=== PATIENT | female | born 1940 | race African-American/Black ===

== ENCOUNTER → 2016-09-08 | Outpatient (CLI) | payer MEDICARE, OTHER ==
[2016-09-08 09:44] LABS: ALANINE AMINOTRANSFERASE 37 U/L (9-52); ALBUMIN 3.4 g/dL (3.5-5.0); ALKALINE PHOSPHATASE 53 U/L (38-126); ANION GAP 8 (5-19); ASPARTATE AMINO TRANSFERASE 36 U/L (14-36); BILIRUBIN,TOTAL 0.6 mg/dL (0.2-1.3); BLOOD UREA NITROGEN 20 mg/dL (7-20); CALCIUM 10.5 mg/dL (8.4-10.2); CARBON DIOXIDE 29 mmol/L (22-30); CHLORIDE 108 mmol/L (98-107); CHOLESTEROL 175.77 mg/dL (0-200); CREATININE RESULT 0.84 mg/dL (0.52-1.25); Direct HDL 80 mg/dL (>40); GLUCOSE 81 mg/dL (75-110); POTASSIUM 4.7 mmol/L (3.6-5.0); SODIUM 145.2 mmol/L (137-145); TOTAL PROTEIN 5.8 g/dL (6.3-8.2); TRIGLYCERIDES 56 mg/dL (<150)
[2016-09-08 09:55] LABS: DIRECT LDL 66 mg/dL (<100)
== END ==
LOC: OD 08:27
PROVIDERS: ATTEND Family Medicine
DX: E10.21 Type 1 diabetes mellitus with diabetic nephropathy (principal); Z79.899 Other long term (current) drug therapy
CPT/HCPCS: 36415; 80048; 80061; 80076; 83036

== ENCOUNTER → 2017-03-22 | Outpatient (CLI) | payer MEDICARE, OTHER ==
[2017-03-22 09:56] LABS: ABSOLUTE EOSINOPHILS # (AUTO) 0.1 10^3/uL (0.0-0.6); ABSOLUTE LYMPHOCYTES (AUTO) 1.4 10^3/uL (0.5-4.7); ABSOLUTE MONOCYTES (AUTO) 0.4 10^3/uL (0.1-1.4); ABSOLUTE NEUT (AUTO) 2.6 10^3/uL (1.7-8.2); BASOPHILS % (AUTO) 0.6 % (0-2); HEMATOCRIT 35.1 % (36.0-47.0); HEMOGLOBIN 11.2 g/dL (12.0-15.5); HGB HCT DIFFERENCE -1.5; LYMPHOCYTES % (AUTO) 31.7 % (13-45); MEAN CORPUSCULAR HEMOGLOBIN 28.9 pg (27.0-33.4); MEAN CORPUSCULAR HGB CONC 31.9 g/dL (32.0-36.0); MEAN CORPUSCULAR VOLUME 90 fl (80-97); MONOCYTES % (AUTO) 8.2 % (3-13); RED BLOOD COUNT 3.88 10^6/uL (3.72-5.28); RED CELL DISTRIBUTION WIDTH 14.2 % (11.5-14.0); SEGMENTED NEUTROPHILS % (AUTO) 57.5 % (42-78); WHITE BLOOD COUNT 4.5 10^3/uL (4.0-10.5)
[2017-03-22 10:26] LABS: ALANINE AMINOTRANSFERASE 26 U/L (9-52); ALBUMIN 3.6 g/dL (3.5-5.0); ALKALINE PHOSPHATASE 56 U/L (38-126); ANION GAP 8 (5-19); ASPARTATE AMINO TRANSFERASE 35 U/L (14-36); BILIRUBIN,DIRECT 0.3 mg/dL (0.0-0.4); BILIRUBIN,TOTAL 0.5 mg/dL (0.2-1.3); BLOOD UREA NITROGEN 15 mg/dL (7-20); CALCIUM 10.3 mg/dL (8.4-10.2); CARBON DIOXIDE 28 mmol/L (22-30); CHLORIDE 108 mmol/L (98-107); CHOLESTEROL 249.04 mg/dL (0-200); CREATININE RESULT 0.77 mg/dL (0.52-1.25); Direct HDL 82 mg/dL (>40); GLUCOSE 129 mg/dL (75-110); POTASSIUM 4.2 mmol/L (3.6-5.0); SODIUM 143.5 mmol/L (137-145); TOTAL PROTEIN 6.3 g/dL (6.3-8.2); TRIGLYCERIDES 78 mg/dL (<150)
[2017-03-22 10:37] LABS: DIRECT LDL 109 mg/dL (<100)
== END ==
LOC: OD 08:54
PROVIDERS: ATTEND Family Medicine
DX: Z79.899 Other long term (current) drug therapy (principal); E11.3392 Type 2 diabetes mellitus with moderate nonproliferative diabetic retinopathy without macular edema, left eye; I10 Essential (primary) hypertension
CPT/HCPCS: 36415; 80053; 80061; 83036; 85025

== ENCOUNTER → 2017-04-19 | Outpatient (CLI) | payer MEDICARE, OTHER ==
[2017-04-19 10:34] LABS: ALANINE AMINOTRANSFERASE 20 U/L (9-52); ALBUMIN 3.4 g/dL (3.5-5.0); ALKALINE PHOSPHATASE 54 U/L (38-126); ANION GAP 8 (5-19); ASPARTATE AMINO TRANSFERASE 29 U/L (14-36); BILIRUBIN,DIRECT 0.3 mg/dL (0.0-0.4); BILIRUBIN,TOTAL 0.4 mg/dL (0.2-1.3); BLOOD UREA NITROGEN 25 mg/dL (7-20); CALCIUM 10.1 mg/dL (8.4-10.2); CARBON DIOXIDE 30 mmol/L (22-30); CHLORIDE 111 mmol/L (98-107); CREATININE RESULT 1.01 mg/dL (0.52-1.25); GLUCOSE 57 mg/dL (75-110); POTASSIUM 4.5 mmol/L (3.6-5.0); SODIUM 148.7 mmol/L (137-145); TOTAL PROTEIN 6.1 g/dL (6.3-8.2)
== END ==
LOC: OD 08:51
PROVIDERS: ATTEND Internal Medicine Nephrology
DX: I10 Essential (primary) hypertension (principal); Z94.0 Kidney transplant status
CPT/HCPCS: 36415; 80053; 80197

== ENCOUNTER 2017-04-25 16:57 | Emergency (ER) | payer MEDICARE, OTHER ==
[2017-04-25 17:40] LABS: ABSOLUTE BASOPHILS # (AUTO) 0.1 10^3/uL (0.0-0.2); ABSOLUTE LYMPHOCYTES (AUTO) 1.2 10^3/uL (0.5-4.7); ABSOLUTE MONOCYTES (AUTO) 0.7 10^3/uL (0.1-1.4); ABSOLUTE NEUT (AUTO) 4.2 10^3/uL (1.7-8.2); BASOPHILS % (AUTO) 1.1 % (0-2); EOSINOPHILS % (AUTO) 0.5 % (0-6); HEMATOCRIT 31.5 % (36.0-47.0); HEMOGLOBIN 10.5 g/dL (12.0-15.5); LYMPHOCYTES % (AUTO) 19.2 % (13-45); MEAN CORPUSCULAR HEMOGLOBIN 29.6 pg (27.0-33.4); MEAN CORPUSCULAR HGB CONC 33.3 g/dL (32.0-36.0); MEAN CORPUSCULAR VOLUME 89 fl (80-97); RED BLOOD COUNT 3.55 10^6/uL (3.72-5.28); RED CELL DISTRIBUTION WIDTH 14.6 % (11.5-14.0); SEGMENTED NEUTROPHILS % (AUTO) 68.2 % (42-78); WHITE BLOOD COUNT 6.1 10^3/uL (4.0-10.5)
[2017-04-25 17:54] LABS: ANION GAP 9 (5-19); BLOOD UREA NITROGEN 57 mg/dL (7-20); CALCIUM 10.1 mg/dL (8.4-10.2); CARBON DIOXIDE 22 mmol/L (22-30); CHLORIDE 114 mmol/L (98-107); GLUCOSE 177 mg/dL (75-110); POTASSIUM 5.4 mmol/L (3.6-5.0); SODIUM 144.7 mmol/L (137-145)
[2017-04-25] MEDS ORDERED: NORMAL SALINE 500 ML IV ONE (18:34)
[2017-04-25] MEDS ORDERED: NORMAL SALINE 1000 ML 1,000 ML IV ONE (18:34)
[2017-04-25 18:41] LABS: APPEARANCE,URINE SLIGHTLY-CLOUDY; BILIRUBIN,URINE NEGATIVE (NEGATIVE); GLUCOSE, URINE 50 mg/dL (NEGATIVE); KETONES,URINE NEGATIVE (NEGATIVE); LEUKOCYTE ESTERASE,URINE SMALL (NEGATIVE); NITRITE,URINE NEGATIVE (NEGATIVE); PROTEIN,URINE 100 mg/dL (NEGATIVE); URINE SPECIFIC GRAVITY 1.008; UROBILINOGEN,URINE NEGATIVE mg/dL (<2.0)
--- NOTE | 2017-04-25 18:45 | ER Document Report ---
ED Medical Screen (RME) - General Chief Complaint: Edema Stated Complaint: LEG PAIN Time Seen by Provider: 04/25/17 17:10 TRAVEL OUTSIDE OF THE [place] IN LAST 30 DAYS: No - HPI Notes: 04/25/17 18:44 Bilateral edema of the lower extremities no leg pain history of transplant of the kidney patient follows up in [place] for transplant care. - Related Data Allergies/Adverse Reactions: Penicillins Allergy (Verified 05/30/12 07:28) quinine [Quinine] Allergy (Verified 05/30/12 07:28) Past Medical History - Past Medical History Cardiac Medical History: Reports: Hx Hypertension Denies: Hx Coronary Artery Disease, Hx Heart Attack Pulmonary Medical History: Denies: Hx Asthma, Hx Bronchitis, Hx COPD, Hx Pneumonia Neurological Medical History: Reports: Hx Seizures. Denies: Hx Cerebrovascular Accident Endocrine Medical History: Reports: Hx Diabetes Mellitus Type 2 Renal/ Medical History: Denies: Hx Peritoneal Dialysis Musculoskeltal Medical History: Reports Hx Arthritis Past Surgical History: Reports: Hx Kidney (Renal Surgery) - transplant. Denies : Hx Hysterectomy, Hx Pacemaker - Immunizations Hx Diphtheria, Pertussis, Tetanus Vaccination: No Review of Systems - Review of Systems Constitutional: Other - Bilateral lower extremity swelling Physical Exam - Vital signs Vitals: Temp Pulse Resp BP Pulse Ox 99.4 F 72 18 124/53 L 98 04/25/17 16:59 04/25/17 16:59 04/25/17 16:59 04/25/17 16:59 04/25/17 16:59 - Extremities General lower extremity: Edema, Other - No calf tenderness no palpable cords Course - Re-evaluation Re-evalutation: 04/25/17 18:45 Initially was going to hold patient RME check basic lab work however patient's laboratory studies does show the new onset of acute renal failure will obtain urinalysis place an IV and given gentle hydration and placed in the back for further evaluation - Vital Signs Vital signs: Temp Pulse Resp BP Pulse Ox 99.4 F 72 18 124/53 L 98 04/25/17 16:59 04/25/17 16:59 04/25/17 16:59 04/25/17 16:59 04/25/17 16:59 - Laboratory Result Diagrams: 04/25/17 17:19 04/25/17 17:19 Laboratory results interpreted by me: 04/25/17 04/25/17 04/25/17 17:19 17:19 18:24 RBC 3.55 L Hgb 10.5 L Hct 31.5 L RDW 14.6 H Plt Count 143 L Potassium 5.4 H Chloride 114 H BUN 57 H Creatinine 2.50 H Est GFR ( Amer) 23 L Est GFR (Non-Af Amer) 19 L Glucose 177 H Urine Protein 100 H Urine Glucose (UA) 50 H Urine Blood LARGE H Ur Leukocyte Esterase SMALL H
--- NOTE | 2017-04-25 19:29 | ER Document Report ---
ED Extremity Problem, Lower - General Chief Complaint: Edema Stated Complaint: LEG PAIN Time Seen by Provider: 04/25/17 17:10 Mode of Arrival: Ambulatory Information source: Patient Notes: 76 yo diabetic (insulin humalog pen 8u am, lunch 10u, supper 10u- lantus pm 10u) , hyperlipedemic, htn, female renal transplant 2006 at [facility] is c/o bilateral lower leg swelling for 1 week, also seeing blood in urine x 1 week. No anticoagulants. No nausea or vomiting. PCP:dr. red, sample maker hand dr. ledbetter in [place]. Insurance would not pay for tacrolimus 1mg 2 bid or Mycophenolic acid 180mg, 720mg bid so has not had then for 1.5 months. She has left arm dialysis access which has a good thrill. No pain. TRAVEL OUTSIDE OF THE [place] IN LAST 30 DAYS: No - Related Data Allergies/Adverse Reactions: Penicillins Allergy (Verified 05/30/12 07:28) quinine [Quinine] Allergy (Verified 05/30/12 07:28) Past Medical History - General Information source: Patient - Social History Smoking Status: Never Smoker Frequency of alcohol use: None Drug Abuse: None Lives with: Alone Family History: Reviewed & Not Pertinent - Past Medical History Cardiac Medical History: Reports: Hx Hypertension Neurological Medical History: Reports: Hx Seizures Endocrine Medical History: Reports: Hx Diabetes Mellitus Type 2 Renal/ Medical History: Reports: Hx End Stage Renal Disease, Hx Hemodialysis - not since 2005. Denies: Hx Peritoneal Dialysis Musculoskeltal Medical History: Reports Hx Arthritis Past Surgical History: Reports: Hx Kidney (Renal Surgery) - transplant. Denies : Hx Hysterectomy, Hx Pacemaker - Immunizations Hx Diphtheria, Pertussis, Tetanus Vaccination: No Hx Pneumococcal Vaccination: 08/09/05 Review of Systems - Review of Systems Constitutional: See HPI EENT: No symptoms reported Cardiovascular: No symptoms reported Respiratory: No symptoms reported Gastrointestinal: No symptoms reported Genitourinary: See HPI Female Genitourinary: No symptoms reported Musculoskeletal: No symptoms reported Skin: No symptoms reported Hematologic/Lymphatic: No symptoms reported Neurological/Psychological: No symptoms reported Physical Exam - Vital signs Vitals: Temp Pulse Resp BP Pulse Ox 99.4 F 72 18 124/53 L 98 04/25/17 16:59 04/25/17 16:59 04/25/17 16:59 04/25/17 16:59 04/25/17 16:59 Interpretation: Normal - General General appearance: Appears well, Alert In distress: None - HEENT Head: Normocephalic, Atraumatic Eyes: Normal Pupils: PERRL Neck: Supple - Respiratory Respiratory status: No respiratory distress Chest status: Nontender Breath sounds: Normal Chest palpation: Normal - Cardiovascular Rhythm: Regular Heart sounds: Normal auscultation Murmur: Yes - Abdominal Inspection: Normal Distension: No distension Bowel sounds: Normal Tenderness: Nontender. No: Tender Organomegaly: No organomegaly - Back Back: Normal, Nontender. No: CVA tenderness - Extremities General upper extremity: Normal inspection, Nontender, Normal color, Normal ROM , Normal temperature General lower extremity: Nontender, Edema - darian lower legs, pitting, Normal color, Normal ROM, Normal temperature, Normal weight bearing. No: Júnior's sign Notes: 2+ bilateral DP - Neurological Neuro grossly intact: Yes Cognition: Normal Orientation: AAOx4 [place] Coma Scale Eye Opening: Spontaneous Victor [place] Coma Scale Verbal: Oriented [place] Coma Scale Motor: Obeys Commands Victor Manuel Coma Scale Total: 15 Speech: Normal Motor strength normal: LUE, RUE, LLE, RLE Sensory: Normal - Psychological Associated symptoms: Normal affect, Normal mood - Skin Skin Temperature: Warm Skin Moisture: Dry Skin Color: Normal Skin irregularity: negative: Rash Course - Re-evaluation Re-evalutation: 04/25/17 19:[address] Muna Oliver sample maker hand and transplant service. 04/25/17 20:[address] justin of the [facility] renal transplant team. He will accept the patient to a SICU bed. [facility] will call back with that assignment. He wants her to get Cipro 400 mg IV and she can take p.o. fluids. She does not need IV fluid. 04/25/17 21:23 rm [id number] at [facility], awaiting transport 04/25/17 22:08 friendly here for the pt. vitals stable, feels well. cipro almost all infused, cxr shows trace right pleural effusion, moderate coardiomegaly. EKG viewed by dr. brown NSR no T wave changes. - Vital Signs Vital signs: Temp Pulse Resp BP Pulse Ox 99.4 F 72 18 153/64 H 100 04/25/17 16:59 04/25/17 16:59 04/25/17 21:00 04/25/17 20:59 04/25/17 21:00 - Laboratory Result Diagrams: 04/25/17 17:19 04/25/17 17:19 Laboratory results interpreted by me: 04/25/17 04/25/17 04/25/17 17:19 17:19 18:24 RBC 3.55 L Hgb 10.5 L Hct 31.5 L RDW 14.6 H Plt Count 143 L Potassium 5.4 H Chloride 114 H BUN 57 H Creatinine 2.50 H Est GFR ( Amer) 23 L Est GFR (Non-Af Amer) 19 L Glucose 177 H Urine Protein 100 H Urine Glucose (UA) 50 H Urine Blood LARGE H Ur Leukocyte Esterase SMALL H Discharge - Discharge Clinical Impression: transplant kidney failure, mild hyperkalemia, hematuria, ASB (asymptomatic bacteriuria) Condition: Stable Disposition: [facility] Referrals: FRANKIE RED MD [Primary Care Provider] - Follow up as needed
[2017-04-25] MEDS ORDERED: CIPROFLOXACIN 400 MG/D5W RTU 400 MG/200 ML RTUPB IV SCH (21:00)
--- NOTE | 2017-04-25 21:18 | RADIOLOGY REPORT (SQ) ---
EXAM DESCRIPTION: CHEST SINGLE VIEW COMPLETED DATE/TIME: 04/25/2017 8:51 pm REASON FOR STUDY: kidney transplant failure, ? chf COMPARISON: None. EXAM PARAMETERS: NUMBER OF VIEWS: One view. TECHNIQUE: Single frontal radiographic view of the chest acquired. RADIATION DOSE: NA LIMITATIONS: None. FINDINGS: LUNGS AND PLEURA: Trace right pleural effusion. Well expanded and grossly clear. No pneumothorax. No left pleural effusion. MEDIASTINUM AND HILAR STRUCTURES: No masses. Contour normal. HEART AND VASCULAR STRUCTURES: Moderate cardiomegaly BONES: No acute findings. HARDWARE: None in the chest. OTHER: No other significant finding. IMPRESSION: Trace right pleural effusion Moderate cardiomegaly TECHNICAL DOCUMENTATION: JOB ID: [id number]
[2017-04-25 22:14] VITALS: BP 170/65
--- NOTE | 2017-04-25 22:15 | ER Document Report ---
Doctor's Note Notes: 04/25/17 22:15 Transport is here for the patient. She is feeling well. She walked to the restroom without any difficulties. Vital signs are stable. She is stable for transport.
--- NOTE | 2017-04-25 23:33 | EKG REPORT ---
SEVERITY:- NORMAL ECG - SINUS RHYTHM : Confirmed by: Logan Pike 25-Apr-2017 23:33:02
== END 2017-04-25 22:32 | disposition short-term general hospital (02) ==
LOC: ER 16:57
DX: N99.0 Postprocedural (acute) (chronic) kidney failure (principal); Z94.0 Kidney transplant status; E87.5 Hyperkalemia; R31.9 Hematuria, unspecified; R82.71 Bacteriuria; R60.0 Localized edema; M79.604 Pain in right leg; M79.605 Pain in left leg; E11.9 Type 2 diabetes mellitus without complications; Z79.4 Long term (current) use of insulin; Z79.899 Other long term (current) drug therapy
CPT/HCPCS: 93005; 99285; 96361; 96365; 36415; 87086; 85025; 87088; 80048; 81001; 71010; 93010; J7040